=== PATIENT | male | born 1970 | race Caucasian/White ===

== ENCOUNTER 2024-09-11 05:45 | Day surgery (SDC) | payer OTHER, SELFPAY ==
[2024-09-11] VITALS (10 sets, daily range): BP systolic 92–155; BP diastolic 67–95; BMI 37.5
[2024-09-11 06:21] LABS: Glucose - Point of Care 94 mg/dl (70-99)
[2024-09-11] MEDS: TYLENOL 1000 MG PO (06:21)
[2024-09-11] MEDS: NORMOSOL-R/PLASMALYTE-A 1000 IV (06:21)
[2024-09-11] MEDS: METHOCARBAMOL 1500 MG PO (06:22)
[2024-09-11] MEDS: LYRICA 150 MG PO (06:22)
[2024-09-11 09:02] LABS: Glucose - Point of Care 241 mg/dl (70-99)
[2024-09-11] MEDS: DILAUDID 0.25 MG IV (09:08)
[2024-09-11 10:39] LABS: Glucose - Point of Care 178 mg/dl (70-99)
== END 2024-09-11 10:55 | disposition home or self-care (01) ==
LOC: SDS 05:45
PROVIDERS: ATTENDING PHYSICIAN Orthopaedic Surgery Orthopaedic Surgery of the Spine
DX: M48.07 Spinal stenosis, lumbosacral region (principal); M51.27 Other intervertebral disc displacement, lumbosacral region
CPT/HCPCS: 63047; 72020; 82962; 87070